=== PATIENT | female | born 1990 | race Two or more races ===

== ENCOUNTER 2017-12-12 04:40 | Emergency (ER) | payer SELFPAY ==
[~2017-12-12] VITALS: Ht 170.2 cm; Wt 65.8 kg
--- NOTE | 2017-12-12 04:44 | ED.ADGEN ---
Adult General Chief Complaint Chief Complaint "..This all started on Tu.. after tacos.. and not felt right since.. pain seem to be on the right.. upper..." (MARIO MARTIN MD) HPI HPI Patient is a 27 year old femae who presents with above hx and complaints of abd. pain rt. upper quadrant. Pt. denies taco's were bad. No prior history of gallbladder disease. No history of trauma. No history of travel or specific ill contacts. Patient reportedly has been having normal stools but still felt bloated. There is a family history of gallbladder disease with mother.o history of Crohn's or colitis and family. Patient has had occasional UTI. No history of renal stones. Patient did recently have an abnormal Pap exam and has a follow- up of her OB on Wednesday. Pt. currently on Depo control. Pt. currently rates her pain at 12/12. N (MARIO MARTIN MD) Review of Systems Review of Systems Constitutional: Denies fever or chills [] Eyes: Denies change in visual acuity, redness, or eye pain [] HENT: Denies nasal congestion or sore throat [] Respiratory: Denies cough or shortness of breath [] Cardiovascular: No additional information not addressed in HPI [] GI: Complaints of Rt. upper abdominal pain, nausea,. Pt. denies vomiting, bloody stools or diarrhea [] : Denies dysuria or hematuria [] Musculoskeletal: Denies back pain or joint pain [] Integument: Denies rash or skin lesions [] Neurologic: Denies headache, focal weakness or sensory changes [] Endocrine: Denies polyuria or polydipsia [] All other systems were reviewed and found to be within normal limits, except as documented in this note. (MARIO MARTIN MD) Family History Family History Mother has hx . of gall stones. (MARIO MARTIN MD) Current Medications Current Medications Current Medications Medications (Trade) Dose Ordered Sig/Jessica Start Time Stop Time Status Last Admin Dose Admin Ceftriaxone Sodium 1 gm/ Sodium Chloride 50 ml @ 100 mls/hr 1X ONCE 12/12/17 05:45 12/12/17 06:14 DC 12/12/17 05:45 100 MLS/HR Ceftriaxone Sodium (Rocephin) 1 gm STK-MED ONCE 12/12/17 06:34 12/12/17 06:35 DC Famotidine (Pepcid) 20 mg 1X ONCE 12/12/17 05:30 12/12/17 05:41 DC 12/12/17 05:30 20 MG Info (Do NOT chart on this entry -- for MONITORING) 1 each PRN DAILY PRN 12/12/17 05:45 12/14/17 05:44 Iohexol (Omnipaque 240 Mg/ml) 50 ml 1X ONCE 12/12/17 05:45 12/12/17 05:46 DC 12/12/17 06:14 50 ML Iohexol (Omnipaque 300 Mg/ml) 75 ml 1X ONCE 12/12/17 05:45 12/12/17 05:46 DC 12/12/17 07:00 75 ML Ketorolac Tromethamine (Toradol) 30 mg 1X ONCE 12/12/17 05:30 12/12/17 05:41 DC 12/12/17 06:08 30 MG Lactated Ringer's 1,000 ml @ 1,000 mls/hr Q1H 12/12/17 05:23 12/12/17 06:22 DC 12/12/17 06:07 1,000 MLS/HR Magnesium Hydroxide (Milk Of Magnesia) 2,400 mg 1X ONCE 12/12/17 05:30 12/12/17 05:41 DC 12/12/17 05:30 2,400 MG Ondansetron HCl (Zofran Odt) 8 mg 1X ONCE 12/12/17 05:30 12/12/17 05:41 DC 12/12/17 06:08 8 MG Sodium Chloride 50 ml @ As Directed STK-MED ONCE 12/12/17 06:33 12/12/17 06:34 DC (CHELLY HUIZAR DO) Current Medications Non-contributory (MARIO MARTIN MD) Allergies Allergies Allergies Coded Allergies Type Severity Reaction Last Updated Verified No Known Drug Allergies 12/12/17 No (CHELLY HUIZAR DO) Allergies NKDA (MARIO MARTIN MD) Physical Exam Physical Exam Constitutional: Well developed, well nourished, in moderately acute distress, non-toxic appearance. [] HENT: Normocephalic, atraumatic, bilateral external ears normal, oropharynx moist, no oral exudates, nose normal. [] Eyes: PERRLA, EOMI, conjunctiva normal, no discharge. [] Neck: Normal range of motion, no tenderness, supple, no stridor. [] Cardiovascular:Heart rate regular rhythm, no murmur [] Lungs & Thorax: Bilateral breath sounds clear to auscultation [] Abdomen: Bowel sounds decreased, soft, Rt. upper and mid quadrant tenderness, no masses, no pulsatile masses. [Pt. declines rectal and vaginal exam at this time. Moderate distention. Skin: Warm, dry, no erythema, no rash. [] Back: No tenderness, no CVA tenderness. [] Extremities: No tenderness, no cyanosis, no clubbing, ROM intact, no edema. [] Mild psoas on Rt. Neurologic: Alert and oriented X 3, normal motor function, normal sensory function, no focal deficits noted. [] Psychologic: Affect anxious, judgement normal, mood normal. [] (MARIO MARTIN MD) Current Patient Data Vital Signs Vital Signs Date Time Temp Pulse Resp B/P (MAP) Pulse Ox O2 Delivery O2 Flow Rate FiO2 12/12/17 04:43 98.3 112 16 99 Room Air (HUIZAR,[facility]) Lab Results Laboratory Tests Test 12/12/17 05:12 White Blood Count 14.3 x10^3/uL (4.0-11.0) H Red Blood Count 4.83 x10^6/uL (3.50-5.40) Hemoglobin 13.3 g/dL (12.0-15.5) Hematocrit 39.6 % (36.0-47.0) Mean Corpuscular Volume 82 fL (79-100) Mean Corpuscular Hemoglobin 28 pg (25-35) Mean Corpuscular Hemoglobin Concent 34 g/dL (31-37) Red Cell Distribution Width 13.6 % (11.5-14.5) Platelet Count 254 x10^3/uL (140-400) Neutrophils (%) (Auto) 69 % (31-73) Lymphocytes (%) (Auto) 21 % (24-48) L Monocytes (%) (Auto) 9 % (0-9) Eosinophils (%) (Auto) 1 % (0-3) Basophils (%) (Auto) 0 % (0-3) Neutrophils # (Auto) 9.8 x10^3uL (1.8-7.7) H Lymphocytes # (Auto) 3.0 x10^3/uL (1.0-4.8) Monocytes # (Auto) 1.3 x10^3/uL (0.0-1.1) H Eosinophils # (Auto) 0.1 x10^3/uL (0.0-0.7) Basophils # (Auto) 0.1 x10^3/uL (0.0-0.2) Urine Collection Type Unknown Urine Color Yellow Urine Clarity Clear Urine pH 6.5 Urine Specific [place] 1.015 Urine Protein Neg (NEG-TRACE) Urine Glucose (UA) Neg mg/dL (NEG) Urine Ketones (Stick) 40 mg/dL (NEG) Urine Blood Trace (NEG) Urine Nitrite Neg (NEG) Urine Bilirubin Neg (NEG) Urine Urobilinogen Dipstick 0.2 mg/dL (0.2 mg/dL) Urine Leukocyte Esterase Neg (NEG) Urine RBC Occ /HPF (0-2) Urine WBC Occ /HPF (0-4) Urine Squamous Epithelial Cells Occ /LPF Urine Bacteria Few /HPF (0-FEW) Urine Mucus Slight /LPF Sodium Level 138 mmol/L (136-145) Potassium Level 3.8 mmol/L (3.5-5.1) Chloride Level 101 mmol/L (98-107) Carbon Dioxide Level 27 mmol/L (21-32) Anion Gap 10 (6-14) Blood Urea Nitrogen 7 mg/dL (7-20) Creatinine 0.7 mg/dL (0.6-1.0) Estimated GFR (Cockcroft-Gault) 101.1 Glucose Level 109 mg/dL (70-99) H Calcium Level 8.8 mg/dL (8.5-10.1) Total Bilirubin 0.5 mg/dL (0.2-1.0) Direct Bilirubin 0.1 mg/dL (0.0-0.2) Aspartate Amino Transferase (AST) 17 U/L (15-37) Alanine Aminotransferase (ALT) 19 U/L (14-59) Alkaline Phosphatase 74 U/L (46-116) Total Protein 8.2 g/dL (6.4-8.2) Albumin 3.6 g/dL (3.4-5.0) Lipase 70 U/L (73-393) L Urine Opiates Screen Neg (NEG) Urine Methadone Screen Neg (NEG) Urine Barbiturates Neg (NEG) Urine Phencyclidine Screen Neg (NEG) Urine Amphetamine/Methamphetamine Neg (NEG) Urine Benzodiazepines Screen Neg (NEG) Urine Cocaine Screen Neg (NEG) Urine Cannabinoids Screen Neg (NEG) Urine Ethyl Alcohol Neg (NEG) (CHELLY HUIZAR DO) Lab Results Laboratory Tests Test 12/12/17 05:12 12/12/17 08:00 White Blood Count 14.3 x10^3/uL (4.0-11.0) H Red Blood Count 4.83 x10^6/uL (3.50-5.40) Hemoglobin 13.3 g/dL (12.0-15.5) Hematocrit 39.6 % (36.0-47.0) Mean Corpuscular Volume 82 fL (79-100) Mean Corpuscular Hemoglobin 28 pg (25-35) Mean Corpuscular Hemoglobin Concent 34 g/dL (31-37) Red Cell Distribution Width 13.6 % (11.5-14.5) Platelet Count 254 x10^3/uL (140-400) Neutrophils (%) (Auto) 69 % (31-73) Lymphocytes (%) (Auto) 21 % (24-48) L Monocytes (%) (Auto) 9 % (0-9) Eosinophils (%) (Auto) 1 % (0-3) Basophils (%) (Auto) 0 % (0-3) Neutrophils # (Auto) 9.8 x10^3uL (1.8-7.7) H Lymphocytes # (Auto) 3.0 x10^3/uL (1.0-4.8) Monocytes # (Auto) 1.3 x10^3/uL (0.0-1.1) H Eosinophils # (Auto) 0.1 x10^3/uL (0.0-0.7) Basophils # (Auto) 0.1 x10^3/uL (0.0-0.2) Urine Collection Type Unknown Urine Color Yellow Urine Clarity Clear Urine pH 6.5 Urine Specific [place] 1.015 Urine Protein Neg (NEG-TRACE) Urine Glucose (UA) Neg mg/dL (NEG) Urine Ketones (Stick) 40 mg/dL (NEG) Urine Blood Trace (NEG) Urine Nitrite Neg (NEG) Urine Bilirubin Neg (NEG) Urine Urobilinogen Dipstick 0.2 mg/dL (0.2 mg/dL) Urine Leukocyte Esterase Neg (NEG) Urine RBC Occ /HPF (0-2) Urine WBC Occ /HPF (0-4) Urine Squamous Epithelial Cells Occ /LPF Urine Bacteria Few /HPF (0-FEW) Urine Mucus Slight /LPF Urine Test Negative (NEG) Sodium Level 138 mmol/L (136-145) Potassium Level 3.8 mmol/L (3.5-5.1) Chloride Level 101 mmol/L (98-107) Carbon Dioxide Level 27 mmol/L (21-32) Anion Gap 10 (6-14) Blood Urea Nitrogen 7 mg/dL (7-20) Creatinine 0.7 mg/dL (0.6-1.0) Estimated GFR (Cockcroft-Gault) 101.1 Glucose Level 109 mg/dL (70-99) H Calcium Level 8.8 mg/dL (8.5-10.1) Total Bilirubin 0.5 mg/dL (0.2-1.0) Direct Bilirubin 0.1 mg/dL (0.0-0.2) Aspartate Amino Transferase (AST) 17 U/L (15-37) Alanine Aminotransferase (ALT) 19 U/L (14-59) Alkaline Phosphatase 74 U/L (46-116) Total Protein 8.2 g/dL (6.4-8.2) Albumin 3.6 g/dL (3.4-5.0) Lipase 70 U/L (73-393) L Urine Opiates Screen Neg (NEG) Urine Methadone Screen Neg (NEG) Urine Barbiturates Neg (NEG) Urine Phencyclidine Screen Neg (NEG) Urine Amphetamine/Methamphetamine Neg (NEG) Urine Benzodiazepines Screen Neg (NEG) Urine Cocaine Screen Neg (NEG) Urine Cannabinoids Screen Neg (NEG) Urine Ethyl Alcohol Neg (NEG) Prothrombin Time 12.2 SEC (9.4-11.4) H Prothrombin Time INR 1.2 (0.9-1.1) H PTT 28 SEC (23-33) (MARIO MARTIN MD) EKG EKG [] (MARIO MARTIN MD) Radiology/Procedures Radiology/Procedures CT still pending at 0700. [] (MARIO MARTIN MD) Radiology/Procedures PATIENT: HEATHER CHOWDHURY ACCOUNT: [id number] : 1990 LOCATION: ER AGE: 27 SEX: F EXAM STATUS: REG ER ORD. PHYSICIAN: MARIO MARTIN MD REASON: pain PROCEDURE: CT ABD PELV W/ORAL&IV CONTRAST CT of the abdomen and pelvis with contrast, 12/12/2017: HISTORY: Abdominal pain Multidetector CT imaging was performed following oral and IV administration of contrast. No hepatic abnormality is identified. The gallbladder is unremarkable. The pancreas shows no abnormality. The spleen is of normal size. The kidneys are unremarkable. There is a complex process in the upper pelvis on the right centered along the medial aspect of the cecum. There is adjacent streaky inflammation in the abdominal fat. Within this process a segment of a tubular structure is seen containing a tiny radiopacity as best demonstrated on coronal images 30-32 of series #3. This probably represents an abnormal appendix containing fluid and a tiny appendicolith. The findings suggest acute appendicitis with rupture. A discrete drainable abscess is not identified. There is a small amount of free fluid along the posterior aspect of the cecum, in the mid pelvis and in the cul-de-sac. Mildly enlarged mesenteric lymph nodes are present in the right lower quadrant, presumably on a reactive basis. The uterus and ovaries are unremarkable. The urinary bladder is mildly distended. The bowel loops are not dilated. No free air is evident in the abdomen or pelvis. IMPRESSION: Right lower quadrant inflammatory process as described above most compatible with acute appendicitis with rupture, with associated free fluid in the pelvis. Electronically signed by: Alli Johnson MD (12/12/2017 7:51 AM) [facility] (CHELLY HUIZAR DO) Course & Med Decision Making Course & Med Decision Making Pertinent Labs and Imaging studies reviewed. (See chart for details) Discussed presentation, testing and tx. plan with Dr. Huizar at shift change 0600. [] (MARIO MARTIN MD) Course & Med Decision Making I discussed the case with Dr. Ricardo at [facility] and he'll except her for transfer. Patient will be nothing by mouth. (CHELLY HUIZAR DO) Final Impression Final Impression 1. Abdomen Pain[] 2. Leukocytosis (MARIO MARTIN MD) Final Impression Acute appendicitis (CHELLY HUIZAR DO) Dragon Disclaimer Dragon Disclaimer This electronic medical record was generated, in whole or in part, using a voice recognition dictation system. (MARIO MARTIN MD) MARIO MARTIN MD Dec 12, 2017 04:44 CHELLY HUIZAR DO Dec 12, 2017 08:19
[2017-12-12] MEDS ORDERED: IV RINGERS SOLUTION,LACTATED 1,000 ML IV SCH (05:23)
[2017-12-12] MEDS ORDERED: FAMOTIDINE 20 MG TABLET PO ONE (05:30)
[2017-12-12] MEDS ORDERED: MAGNESIUM HYDROXIDE 2,400 MG/30 ML ORAL.SUSP. PO ONE (05:30)
[2017-12-12] MEDS ORDERED: ONDANSETRON ODT 4 MG TAB.RAPDIS PO ONE (05:30)
[2017-12-12] MEDS ORDERED: KETOROLAC 30 MG/ML VIAL. IV ONE (05:30)
[2017-12-12 05:37] LABS: BASO # 0.1 x10^3/uL (0.0-0.2); BASO % 0 % (0-3); EOS # 0.1 x10^3/uL (0.0-0.7); EOS % 1 % (0-3); HEMATOCRIT 39.6 % (36.0-47.0); HEMOGLOBIN 13.3 g/dL (12.0-15.5); LYMPH % 21 % (24-48); MEAN CORPUSCULAR HEMOGLOBIN 28 pg (25-35); MEAN CORPUSCULAR HGB CONC 34 g/dL (31-37); MEAN CORPUSCULAR VOLUME 82 fL (79-100); MONO # 1.3 x10^3/uL (0.0-1.1); MONO % 9 % (0-9); NEUT # 9.8 x10^3uL (1.8-7.7); NEUT % 69 % (31-73); PLATELET COUNT 254 x10^3/uL (140-400); RED BLOOD COUNT 4.83 x10^6/uL (3.50-5.40); RED CELL DISTRIBUTION WIDTH 13.6 % (11.5-14.5); WHITE BLOOD COUNT 14.3 x10^3/uL (4.0-11.0)
[2017-12-12 05:45] LABS: BARBITURATES NEG (NEG); BENZODIAZEPINES NEG (NEG); CANNABINOIDS NEG (NEG); COCAINE NEG (NEG); METHADONE NEG (NEG); OPIATES NEG (NEG); PHENCYCLIDINE NEG (NEG)
[2017-12-12] MEDS ORDERED: IOHEXOL 240 MG/ML 50ML VIAL. PO ONE (05:45)
[2017-12-12] MEDS ORDERED: CONTRAST GIVEN MC PRN (05:45)
[2017-12-12] MEDS ORDERED: IOHEXOL 300 MG/ML 75 ML VIAL. IV ONE (05:45)
[2017-12-12 05:48] LABS: CLARITY,URINE CLEAR; COLOR,URINE YELLOW
[2017-12-12 05:49] LABS: ALBUMIN 3.6 g/dL (3.4-5.0); BACTERIA,URINE FEW /HPF (0-FEW); BILIRUBIN,URINE NEG (NEG); CALCIUM 8.8 mg/dL (8.5-10.1); CREATININE 0.7 mg/dL (0.6-1.0); DIRECT BILIRUBIN 0.1 mg/dL (0.0-0.2); GFR 101.1; GLUCOSE,URINE NEG (NEG); NITRITE,URINE NEG (NEG); POTASSIUM 3.8 mmol/L (3.5-5.1); RBC,URINE OCC /HPF (0-2); SQUAMOUS EPITHELIAL CELL,UR OCC /LPF; TOTAL BILIRUBIN 0.5 mg/dL (0.2-1.0); TOTAL PROTEIN 8.2 g/dL (6.4-8.2); UROBILINOGEN,URINE 0.2 mg/dL (0.2 mg/dL); WBC,URINE OCC /HPF (0-4)
[2017-12-12 05:50] LABS: AMPHETAMINE/METHAMPHETAMINE NEG (NEG)
[2017-12-12] MEDS ORDERED: IV NORMAL SALINE 50ML 50 ML ONE ×2 (06:33→08:18)
[2017-12-12] MEDS ORDERED: cefTRIAXone SODIUM 1 GM VIAL IV ONE (06:34)
--- NOTE | 2017-12-12 07:54 | RAD ---
CT of the abdomen and pelvis with contrast, 12/12/2017: HISTORY: Abdominal pain Multidetector CT imaging was performed following oral and IV administration of contrast. No hepatic abnormality is identified. The gallbladder is unremarkable. The pancreas shows no abnormality. The spleen is of normal size. The kidneys are unremarkable. There is a complex process in the upper pelvis on the right centered along the medial aspect of the cecum. There is adjacent streaky inflammation in the abdominal fat. Within this process a segment of a tubular structure is seen containing a tiny radiopacity as best demonstrated on coronal images 30-32 of series #3. This probably represents an abnormal appendix containing fluid and a tiny appendicolith. The findings suggest acute appendicitis with rupture. A discrete drainable abscess is not identified. There is a small amount of free fluid along the posterior aspect of the cecum, in the mid pelvis and in the cul-de-sac. Mildly enlarged mesenteric lymph nodes are present in the right lower quadrant, presumably on a reactive basis. The uterus and ovaries are unremarkable. The urinary bladder is mildly distended. The bowel loops are not dilated. No free air is evident in the abdomen or pelvis. IMPRESSION: Right lower quadrant inflammatory process as described above most compatible with acute appendicitis with rupture, with associated free fluid in the pelvis. Electronically signed by: Alli Johnson MD (12/12/2017 7:51 AM) [facility]
--- NOTE | 2017-12-12 07:55 | RAD ---
Acute abdomen series with chest, 3 views, 12/12/2017: HISTORY: Abdominal pain The abdominal gas pattern is unremarkable. No free air seen in the abdomen. There is no evidence organomegaly or abnormal abdominal calcification. The heart size is normal. No pulmonary infiltrate is seen. There is no evidence of pleural fluid. IMPRESSION: No acute abdominal abnormality is detected. Electronically signed by: Alli Johnson MD (12/12/2017 7:52 AM) [facility]
[2017-12-12 08:15] VITALS: BP 122/71
[2017-12-12] MEDS ORDERED: PIPERACILLIN/TAZOBACTAM 3.375 GM in IV NORMAL SALINE 50ML 50 ML IV ONE (08:15)
[2017-12-12] MEDS ORDERED: PIPERACILLIN/TAZOBACTAM 3.375 GM VIAL IV ONE (08:18)
[2017-12-12 09:42] LABS: U PREG PATIENT NEGATIVE (NEG)
== END 2017-12-12 08:30 ==
LOC: ER 04:40
DX: R10.11 Right upper quadrant pain (principal); D72.829 Elevated white blood cell count, unspecified
CPT/HCPCS: 36415; 74022; 74177; 80048; 80076; 80307; 81001; 81025; 83690; 85025; 85610; 85730; 96365; 96366; 96367; 96375; 99285; J0696; J1885; J2543; J7120; Q0162; Q9966; Q9967; G0479